=== PATIENT | female | born 2000 | race African-American/Black ===

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

== ENCOUNTER 2019-01-10 06:56 | Emergency (ER) | payer SELFPAY ==
[~2019-01-10] VITALS: Ht 172.7 cm; Wt 58.5 kg
[~2019-01-10 06:56] MED LIST: METR500T PO; ONDA4TAB10 SL; PHEN-318 PO; SULF1TAB24 PO; VALA1000 PO
[2019-01-10] MEDS ORDERED: IV NORMAL SALINE 1000ML BAG 1,000 ML IV SCH (07:21)
[2019-01-10] MEDS ORDERED: FAMOTIDINE 20 MG/2 ML VIAL IVP ONE (07:30)
[2019-01-10] MEDS ORDERED: ONDANSETRON PF 4 MG/2 ML VIAL. IV ONE (07:30)
[2019-01-10 07:40] LABS: BASO % 1 % (0-3); EOS # 0.2 x10^3/uL (0.0-0.7); EOS % 4 % (0-3); HEMATOCRIT 41.3 % (36.0-47.0); HEMOGLOBIN 13.9 g/dL (12.0-15.5); LYMPH # 1.7 x10^3/uL (1.0-4.8); LYMPH % 42 % (24-48); MEAN CORPUSCULAR HEMOGLOBIN 28 pg (25-35); MEAN CORPUSCULAR HGB CONC 34 g/dL (31-37); MEAN CORPUSCULAR VOLUME 83 fL (79-100); MONO # 0.4 x10^3/uL (0.0-1.1); MONO % 9 % (0-9); NEUT # 1.8 x10^3uL (1.8-7.7); NEUT % 44 % (31-73); PLATELET COUNT 245 x10^3/uL (140-400); RED BLOOD COUNT 4.96 x10^6/uL (3.50-5.40); RED CELL DISTRIBUTION WIDTH 12.8 % (11.5-14.5); WHITE BLOOD COUNT 4.1 x10^3/uL (4.0-11.0)
[2019-01-10 07:41] LABS: BILIRUBIN,URINE NEGATIVE (NEG); CLARITY,URINE CLEAR; COLOR,URINE YELLOW; NITRITE,URINE NEGATIVE (NEG); PH,URINE 5.5; PROTEIN,URINE NEGATIVE (NEG-TRACE); UROBILINOGEN,URINE 0.2 mg/dL (0.2 mg/dL)
[2019-01-10 07:45] LABS: CALCIUM 9.3 mg/dL (8.5-10.1); CREATININE 0.8 mg/dL (0.6-1.0); GFR 111.8; POTASSIUM 3.4 mmol/L (3.5-5.1)
[2019-01-10 07:51] LABS: ALBUMIN 4.3 g/dL (3.4-5.0); ALBUMIN/GLOBULIN RATIO 1.2 (1.0-1.7)
[2019-01-10 07:54] LABS: SQUAMOUS EPITHELIAL CELL,UR MOD /LPF
[2019-01-10 07:55] LABS: BACTERIA,URINE 0 /HPF (0-FEW); RBC,URINE 0 /HPF (0-2); WBC,URINE OCC /HPF (0-4)
[2019-01-10] MEDS ORDERED: KETOROLAC 30 MG/ML VIAL. IV ONE (08:00)
--- NOTE | 2019-01-10 08:05 | PHYS DOC ---
Past Medical History Past Medical History: No Pertinent History Past Surgical History: No Surgical History Alcohol Use: None Drug Use: None Adult General Chief Complaint Chief Complaint: ABDOMINAL PAIN [facility] HPI Patient is a 18 year old female who presents with complaining of abdominal pain. Patient states she woke up at 6 AM because of nausea and upper abdominal pain as a constant sharp pain without radiation and rated her pain 9/10. Patient denies fever and chills, urinary symptoms, vomiting, , vaginal bleeding or discharge, diarrhea and constipation. Patient states he had a normal bowel movement yesterday. Patient states she had episodes of the same pain frequently and ate pizza last night. Review of Systems Review of Systems Constitutional: Denies fever or chills [] Eyes: Denies change in visual acuity, redness, or eye pain [] HENT: Denies nasal congestion or sore throat [] Respiratory: Denies cough or shortness of breath [] Cardiovascular: No additional information not addressed in HPI [] GI: Reports abdominal pain, nausea, denies vomiting, bloody stools or diarrhea [] : Denies dysuria or hematuria [] Musculoskeletal: Denies back pain or joint pain [] Integument: Denies rash or skin lesions [] Neurologic: Denies headache, focal weakness or sensory changes [] Endocrine: Denies polyuria or polydipsia [] All other systems were reviewed and found to be within normal limits, except as documented in this note. Current Medications Current Medications Current Medications Medications (Trade) Dose Ordered Sig/Angelina Start Time Stop Time Status Last Admin Dose Admin Famotidine (Pepcid Vial) 20 mg 1X ONCE 01/10/19 07:30 01/10/19 07:31 DC 01/10/19 07:46 20 MG Ketorolac Tromethamine (Toradol 30mg Vial) 30 mg 1X ONCE 01/10/19 08:00 01/10/19 08:01 DC 01/10/19 08:00 30 MG Ondansetron HCl (Zofran) 4 mg 1X ONCE 01/10/19 07:30 01/10/19 07:31 DC 01/10/19 07:46 4 MG Sodium Chloride 1,000 ml @ 1,000 mls/hr Q1H 01/10/19 07:21 01/10/19 08:20 DC 01/10/19 07:46 1,000 MLS/HR Allergies Allergies Allergies Coded Allergies Type Severity Reaction Last Updated Verified No Known Drug Allergies 12/29/16 No Physical Exam Physical Exam Constitutional: Well developed, well nourished, mild distress, non-toxic appearance. [] HENT: Normocephalic, atraumatic, oral mucosa moist. Eyes: PERRLA, EOMI, conjunctiva normal, no discharge. [] Neck: Normal range of motion, no tenderness, supple, no stridor. [] Cardiovascular:Heart rate regular rhythm, no murmur [] Lungs & Thorax: Bilateral breath sounds clear to auscultation [] Abdomen: Bowel sounds normal, soft, no tenderness, mild guarding in epigastric area, no masses, no pulsatile masses. [] Skin: Warm, dry, no erythema, no rash. [] Back: No tenderness, no CVA tenderness. [] Extremities: No tenderness, no cyanosis, no clubbing, ROM intact, no edema. [] Neurologic: Alert and oriented X 3, normal motor function, normal sensory function, no focal deficits noted. [] Psychologic: Affect normal, judgement normal, mood normal. [] Current Patient Data Vital Signs Vital Signs Date Time Temp Pulse Resp B/P (MAP) Pulse Ox O2 Delivery O2 Flow Rate FiO2 01/10/19 08:16 69 106/64 (78) 100 01/10/19 07:06 98.1 16 Room Air 98.1 Lab Values Laboratory Tests Test 01/10/19 06:58 01/10/19 07:05 01/10/19 07:11 Urine Collection Type Unknown Urine Color Yellow Urine Clarity Clear Urine pH 5.5 Urine Specific [place] 1.025 Urine Protein Negative mg/dL (NEG-TRACE) Urine Glucose (UA) Negative mg/dL (NEG) Urine Ketones (Stick) Negative mg/dL (NEG) Urine Blood Small (NEG) Urine Nitrite Negative (NEG) Urine Bilirubin Negative (NEG) Urine Urobilinogen Dipstick 0.2 mg/dL (0.2 mg/dL) Urine Leukocyte Esterase Negative (NEG) Urine RBC 0 /HPF (0-2) Urine WBC Occ /HPF (0-4) Urine Squamous Epithelial Cells Mod /LPF Urine Bacteria 0 /HPF (0-FEW) Urine Mucus Marked /LPF POC Urine HCG, Qualitative Hcg negative (Negative) White Blood Count 4.1 x10^3/uL (4.0-11.0) Red Blood Count 4.96 x10^6/uL (3.50-5.40) Hemoglobin 13.9 g/dL (12.0-15.5) Hematocrit 41.3 % (36.0-47.0) Mean Corpuscular Volume 83 fL (79-100) Mean Corpuscular Hemoglobin 28 pg (25-35) Mean Corpuscular Hemoglobin Concent 34 g/dL (31-37) Red Cell Distribution Width 12.8 % (11.5-14.5) Platelet Count 245 x10^3/uL (140-400) Neutrophils (%) (Auto) 44 % (31-73) Lymphocytes (%) (Auto) 42 % (24-48) Monocytes (%) (Auto) 9 % (0-9) Eosinophils (%) (Auto) 4 % (0-3) H Basophils (%) (Auto) 1 % (0-3) Neutrophils # (Auto) 1.8 x10^3uL (1.8-7.7) Lymphocytes # (Auto) 1.7 x10^3/uL (1.0-4.8) Monocytes # (Auto) 0.4 x10^3/uL (0.0-1.1) Eosinophils # (Auto) 0.2 x10^3/uL (0.0-0.7) Basophils # (Auto) 0.0 x10^3/uL (0.0-0.2) Sodium Level 140 mmol/L (136-145) Potassium Level 3.4 mmol/L (3.5-5.1) L Chloride Level 103 mmol/L (98-107) Carbon Dioxide Level 28 mmol/L (21-32) Anion Gap 9 (6-14) Blood Urea Nitrogen 10 mg/dL (7-20) Creatinine 0.8 mg/dL (0.6-1.0) Estimated GFR (Cockcroft-Gault) 111.8 BUN/Creatinine Ratio 13 (6-20) Glucose Level 98 mg/dL (70-99) Calcium Level 9.3 mg/dL (8.5-10.1) Total Bilirubin 2.0 mg/dL (0.2-1.0) H Aspartate Amino Transferase (AST) 20 U/L (15-37) Alanine Aminotransferase (ALT) 14 U/L (14-59) Alkaline Phosphatase 63 U/L (46-116) Total Protein 8.0 g/dL (6.4-8.2) Albumin 4.3 g/dL (3.4-5.0) Albumin/Globulin Ratio 1.2 (1.0-1.7) Lipase 151 U/L (73-393) Laboratory Tests 01/10/19 07:11 Laboratory Tests 01/10/19 07:11 EKG EKG [] Radiology/Procedures Radiology/Procedures [][facility] [address] [place] [address] IMAGING REPORT Signed PATIENT: TUNG FLORIAN ACCOUNT: [id number] : 2000 LOCATION: ER AGE: 18 SEX: F EXAM STATUS: REG ER ORD. PHYSICIAN: JAHAIRA LEBLANC MD REASON: upper abdominal pain PROCEDURE: ABDOMEN LTD Examination: ABDOMEN LTD History: UPPER ABD PAIN Comparison/Correlation: None Findings: Limited right upper quadrant ultrasound exam was performed. Gallbladder is normal with no cholelithiasis or inflammatory findings. Hepatic echotexture is normal. Inferior vena cava and abdominal aorta are unremarkable. Right kidney measures 11.7 cm x 5.1 cm x 4.1 cm. No right hydronephrosis. Right renal contour is normal. Proximal pancreas is normal. Distal pancreas is obscured by bowel gas. No right upper quadrant ascites. Portal venous flow is unremarkable. Impression: Normal right upper quadrant ultrasound exam. Electronically signed by: Yovanny Wade MD (01/10/2019 8:17 AM) [facility] DICTATED and SIGNED BY: YOVANNY WADE MD DATE: 01/10/19 0817 Course & Med Decision Making Course & Med Decision Making Pertinent Labs and Imaging studies reviewed. (See chart for details) Evaluation of patient in ER showed 18-year-old female patient with complaining of upper abdominal pain and nausea since this morning with episodes of the same problem previously. Patient had unremarkable physical exam and labs except for potassium of 3.4. Gallbladder ultrasound was unremarkable. Patient with IV fluid, Zofran, Pepcid and Toradol. Plan discharge patient home to diagnose of dyspepsia. I've spoken with the patient and/or caregivers. I've explained the patient's condition, diagnosis and treatment plan based on information available to me at this time. I've answered the patient's and/or caregivers questions and addressed any concerns. The patient and/or caregivers have a good understanding the patient's diagnosis, condition and treatment plan as can be expected at this point. Vital signs have been stabilized. The patient's condition is stable for discharge from the emergency department. The patient will pursue further outpatient evaluation with her primary care provider or other designated consulting physician as outlined in the discharge instructions. Patient and/or caregivers are agreeable to this plan of care and follow-up instructions have been explained in detail. The patient and/or caregivers have received these instructions in written format and expressed understanding of these discharge instructions. The patient and her caregivers are aware that if any significant change in condition or worsening of symptoms should prompt him to immediately return to this of the closest emergency department. If an emergent department is not readily available I would encourage him to call 911. Dragon Disclaimer Dragon Disclaimer This electronic medical record was generated, in whole or in part, using a voice recognition dictation system. Departure Departure Impression: Primary Impression: Dyspepsia Additional Impressions: Nausea Epigastric pain Disposition: HOME, SELF-CARE (at 0 828) Condition: IMPROVED Referrals: NO PCP (PCP) Patient Instructions: Diet for Gastroesophageal Reflux Disease, Adult Additional Instructions: Drink plenty of liquids Follow-up with your primary care physician in 3-5 days Return to ER if not getting better Avoid of eating greasy and spicy food Scripts Ranitidine Hcl (ZANTAC) 150 Mg Tablet 1 TAB PO BID for dyspepsia, #30 TAB 0 Refills Prov: JAHAIRA LEBLANC MD 01/10/19 Problem Qualifiers JAHAIRA LEBLANC MD Jan 10, 2019 08:05
--- NOTE | 2019-01-10 08:19 | RAD ---
Examination: ABDOMEN LTD History: UPPER ABD PAIN Comparison/Correlation: None Findings: Limited right upper quadrant ultrasound exam was performed. Gallbladder is normal with no cholelithiasis or inflammatory findings. Hepatic echotexture is normal. Inferior vena cava and abdominal aorta are unremarkable. Right kidney measures 11.7 cm x 5.1 cm x 4.1 cm. No right hydronephrosis. Right renal contour is normal. Proximal pancreas is normal. Distal pancreas is obscured by bowel gas. No right upper quadrant ascites. Portal venous flow is unremarkable. Impression: Normal right upper quadrant ultrasound exam. Electronically signed by: Yovanny King MD (01/10/2019 8:17 AM) [facility]
[2019-01-10] MEDS ORDERED: RANI-376 PO (08:30)
[2019-01-10 08:35] VITALS: BP 112/65
== END 2019-01-10 08:43 | disposition home or self-care (01) ==
LOC: ER 06:56
DX: R10.13 Epigastric pain (principal); R11.0 Nausea
CPT/HCPCS: 36415; 76705; 80053; 81001; 81025; 83690; 85025; 96374; 96375; 99285; J1885; J2405; J3490; J7030

== ENCOUNTER 2019-03-14 14:01 | Emergency (ER) | payer SELFPAY ==
[~2019-03-14] VITALS: Ht 172.7 cm; Wt 56.2 kg
[~2019-03-14 14:01] MED LIST changes: +RANI-376 PO
[2019-03-14] MEDS ORDERED: IV NORMAL SALINE 1000ML BAG 1,000 ML IV ONE (15:30)
[2019-03-14] MEDS ORDERED: ONDANSETRON PF 4 MG/2 ML VIAL. IV ONE (15:30)
--- NOTE | 2019-03-14 15:31 | PHYS DOC ---
Past Medical History Past Medical History: No Pertinent History Past Surgical History: No Surgical History Alcohol Use: None Drug Use: None Adult General Chief Complaint Chief Complaint: ABDOMINAL PAIN HPI HPI Patient is a 18 year old female presents for eval of nausea since Tuesday. She reports woke up last night and had an episode of emesis. Denies diarrhea. She reports abdominal pain associated c nausea only. No point tenderness to abd. She states no fevers and denies , has IUD and no menstrual cycles d/t IUD. She does relate some pain intermittently in her left side, not in her back. Review of Systems Review of Systems Constitutional: Denies fever or chills [] Eyes: Denies change in visual acuity, redness, or eye pain [] HENT: Denies nasal congestion or sore throat [] Respiratory: Denies cough or shortness of breath [] Cardiovascular: No additional information not addressed in HPI [] GI: Denies abdominal pain, nausea, vomiting, bloody stools or diarrhea [] : Denies dysuria or hematuria [] Musculoskeletal: Denies back pain or joint pain [] Integument: Denies rash or skin lesions [] Neurologic: Denies headache, focal weakness or sensory changes [] Endocrine: Denies polyuria or polydipsia [] All other systems were reviewed and found to be within normal limits, except as documented in this note. Current Medications Current Medications Current Medications Medications (Trade) Dose Ordered Sig/Angelina Start Time Stop Time Status Last Admin Dose Admin Ondansetron HCl (Zofran) 4 mg 1X ONCE 03/14/19 15:30 03/14/19 15:32 DC 03/14/19 16:07 4 MG Sodium Chloride 1,000 ml @ 1,000 mls/hr 1X ONCE 03/14/19 15:30 03/14/19 16:29 DC 03/14/19 16:05 1,000 MLS/HR Allergies Allergies Allergies Coded Allergies Type Severity Reaction Last Updated Verified No Known Drug Allergies 12/29/16 No Physical Exam Physical Exam Constitutional: Well developed, well nourished, no acute distress, non-toxic appearance. [] Neck: Normal range of motion, no tenderness, supple, no stridor. [] Cardiovascular:Heart rate regular rhythm, no murmur [] Lungs & Thorax: Bilateral breath sounds clear to auscultation [] Abdomen: Bowel sounds normal, soft, no tenderness, no masses, no pulsatile masses. [] Skin: Warm, dry, no erythema, no rash. [] Back: No tenderness, no CVA tenderness. [] Neurologic: Alert and oriented X 3, normal motor function, normal sensory function, no focal deficits noted. [] Psychologic: Affect normal, judgement normal, mood normal. [] Current Patient Data Vital Signs Vital Signs Date Time Temp Pulse Resp B/P (MAP) Pulse Ox O2 Delivery O2 Flow Rate FiO2 03/14/19 17:44 77 16 116/57 (76) 100 Room Air 03/14/19 15:30 98.3 98.3 Lab Values Laboratory Tests Test 03/14/19 15:25 03/14/19 15:28 03/14/19 16:21 Urine Collection Type Unknown Urine Color Yellow Urine Clarity Clear Urine pH 6.0 Urine Specific [place] 1.020 Urine Protein Negative mg/dL (NEG-TRACE) Urine Glucose (UA) Negative mg/dL (NEG) Urine Ketones (Stick) Negative mg/dL (NEG) Urine Blood Negative (NEG) Urine Nitrite Negative (NEG) Urine Bilirubin Negative (NEG) Urine Urobilinogen Dipstick 1.0 mg/dL (0.2 mg/dL) Urine Leukocyte Esterase Negative (NEG) Urine RBC 0 /HPF (0-2) Urine WBC Rare /HPF (0-4) Urine Squamous Epithelial Cells Many /LPF Urine Bacteria Few /HPF (0-FEW) Urine Mucus Slight /LPF Urine Test Negative (NEG) POC Urine HCG, Qualitative Hcg negative (Negative) White Blood Count 4.0 x10^3/uL (4.0-11.0) Red Blood Count 4.82 x10^6/uL (3.50-5.40) Hemoglobin 13.7 g/dL (12.0-15.5) Hematocrit 40.3 % (36.0-47.0) Mean Corpuscular Volume 84 fL (79-100) Mean Corpuscular Hemoglobin 28 pg (25-35) Mean Corpuscular Hemoglobin Concent 34 g/dL (31-37) Red Cell Distribution Width 13.1 % (11.5-14.5) Platelet Count 228 x10^3/uL (140-400) Neutrophils (%) (Auto) 59 % (31-73) Lymphocytes (%) (Auto) 31 % (24-48) Monocytes (%) (Auto) 8 % (0-9) Eosinophils (%) (Auto) 1 % (0-3) Basophils (%) (Auto) 1 % (0-3) Neutrophils # (Auto) 2.4 x10^3uL (1.8-7.7) Lymphocytes # (Auto) 1.2 x10^3/uL (1.0-4.8) Monocytes # (Auto) 0.3 x10^3/uL (0.0-1.1) Eosinophils # (Auto) 0.0 x10^3/uL (0.0-0.7) Basophils # (Auto) 0.0 x10^3/uL (0.0-0.2) Sodium Level 140 mmol/L (136-145) Potassium Level 3.3 mmol/L (3.5-5.1) L Chloride Level 103 mmol/L (98-107) Carbon Dioxide Level 29 mmol/L (21-32) Anion Gap 8 (6-14) Blood Urea Nitrogen 8 mg/dL (7-20) Creatinine 0.7 mg/dL (0.6-1.0) Estimated GFR (Cockcroft-Gault) 130.4 BUN/Creatinine Ratio 11 (6-20) Glucose Level 83 mg/dL (70-99) Calcium Level 9.3 mg/dL (8.5-10.1) Total Bilirubin 1.4 mg/dL (0.2-1.0) H Aspartate Amino Transferase (AST) 19 U/L (15-37) Alanine Aminotransferase (ALT) 20 U/L (14-59) Alkaline Phosphatase 61 U/L (46-116) Total Protein 7.9 g/dL (6.4-8.2) Albumin 4.3 g/dL (3.4-5.0) Albumin/Globulin Ratio 1.2 (1.0-1.7) Lipase 83 U/L (73-393) Laboratory Tests 03/14/19 16:21 Laboratory Tests 03/14/19 16:21 EKG EKG [] Radiology/Procedures Radiology/Procedures [] Course & Med Decision Making Course & Med Decision Making Pertinent Labs and Imaging studies reviewed. (See chart for details) [pt feeling better, no nausea, keith po fluids. vss, no fever, stable and non- toxic. f/u c pcp, rx zofran] Leonel Disclaimer Leonel Disclaimer This electronic medical record was generated, in whole or in part, using a voice recognition dictation system. Departure Departure Impression: Primary Impression: Vomiting Disposition: 01 HOME, SELF-CARE Condition: STABLE Referrals: NO PCP (PCP) Patient Instructions: Nausea and Vomiting Scripts Ondansetron Hcl (ZOFRAN) 4 Mg Tablet 1 TAB PO Q6HRS, #20 TAB Prov: MAGGIE HARP APRN 03/14/19 Problem Qualifiers Primary Impression: Vomiting Vomiting type: unspecified Vomiting Intractability: non-intractable Nausea presence: with nausea Qualified Codes: R11.2 - Nausea with vomiting, unspecified MAGGIE HARP APRN Mar 14, 2019 15:31
[2019-03-14 15:38] LABS: BILIRUBIN,URINE NEGATIVE (NEG); CLARITY,URINE CLEAR; COLOR,URINE YELLOW; NITRITE,URINE NEGATIVE (NEG); PROTEIN,URINE NEGATIVE (NEG-TRACE)
[2019-03-14 15:43] LABS: BACTERIA,URINE FEW /HPF (0-FEW); RBC,URINE 0 /HPF (0-2); SQUAMOUS EPITHELIAL CELL,UR MANY /LPF; WBC,URINE RARE /HPF (0-4)
[2019-03-14 16:17] LABS: U PREG PATIENT NEGATIVE (NEG)
[2019-03-14 16:30] LABS: BASO % 1 % (0-3); EOS % 1 % (0-3); HEMATOCRIT 40.3 % (36.0-47.0); HEMOGLOBIN 13.7 g/dL (12.0-15.5); LYMPH # 1.2 x10^3/uL (1.0-4.8); LYMPH % 31 % (24-48); MEAN CORPUSCULAR HEMOGLOBIN 28 pg (25-35); MEAN CORPUSCULAR HGB CONC 34 g/dL (31-37); MEAN CORPUSCULAR VOLUME 84 fL (79-100); MONO # 0.3 x10^3/uL (0.0-1.1); MONO % 8 % (0-9); NEUT # 2.4 x10^3uL (1.8-7.7); NEUT % 59 % (31-73); PLATELET COUNT 228 x10^3/uL (140-400); RED BLOOD COUNT 4.82 x10^6/uL (3.50-5.40); RED CELL DISTRIBUTION WIDTH 13.1 % (11.5-14.5)
[2019-03-14 17:04] LABS: CALCIUM 9.3 mg/dL (8.5-10.1); CREATININE 0.7 mg/dL (0.6-1.0); GFR 130.4; POTASSIUM 3.3 mmol/L (3.5-5.1)
[2019-03-14 17:10] LABS: ALBUMIN 4.3 g/dL (3.4-5.0); ALBUMIN/GLOBULIN RATIO 1.2 (1.0-1.7); TOTAL BILIRUBIN 1.4 mg/dL (0.2-1.0); TOTAL PROTEIN 7.9 g/dL (6.4-8.2)
[2019-03-14] MEDS ORDERED: ONDA4TAB7 PO (17:33)
[2019-03-14 17:44] VITALS: BP 116/57
== END 2019-03-14 18:02 | disposition home or self-care (01) ==
LOC: ER 14:01
DX: R11.2 Nausea with vomiting, unspecified (principal); R10.9 Unspecified abdominal pain
CPT/HCPCS: 36415; 80053; 81001; 81025; 83690; 85025; 96361; 96374; 99284; J2405; J7030

== ENCOUNTER 2020-10-05 07:37 | Observation (INO) | payer OTHER, MEDICAID ==
[~2020-10-05] VITALS: Ht 147.3 cm; Wt 62.1 kg
[~2020-10-05 07:37] MED LIST changes: +ONDA4TAB7 PO; -VALA1000 PO; +VALA10008 PO
[2020-10-05 08:15] VITALS: BP 90/52
[2020-10-05] MEDS ORDERED: IV RINGERS,LACTATED 1000ML 1,000 ML IV SCH (08:15)
[2020-10-05 08:31] LABS: BILIRUBIN,URINE NEGATIVE (NEG); CLARITY,URINE CLEAR; COLOR,URINE YELLOW; NITRITE,URINE NEGATIVE (NEG); PH,URINE 6.5 (<5.0-8.0); PROTEIN,URINE NEGATIVE (NEG-TRACE)
[2020-10-05 08:33] LABS: BARBITURATES NEG (NEG); BENZODIAZEPINES NEG (NEG); CANNABINOIDS POS (NEG); COCAINE NEG (NEG); METHADONE NEG (NEG); OPIATES NEG (NEG); PHENCYCLIDINE NEG (NEG)
[2020-10-05 08:35] LABS: AMPHETAMINE/METHAMPHETAMINE NEG (NEG)
[2020-10-05 08:43] LABS: BACTERIA,URINE FEW /HPF (0-FEW)
== END 2020-10-05 10:52 | disposition home or self-care (01) ==
LOC: 3 SO LND 07:37
PROVIDERS: ADMIT Obstetrics & Gynecology; ATTEND Obstetrics & Gynecology
DX: O26.893 Other specified pregnancy related conditions, third trimester (principal); O9A.213 Injury, poisoning and certain other consequences of external causes complicating pregnancy, third trimester; R10.30 Lower abdominal pain, unspecified; Z3A.38 38 weeks gestation of pregnancy; Z79.899 Other long term (current) drug therapy; Y04.0XXA Assault by unarmed brawl or fight, initial encounter; Y93.89 Activity, other specified; Y92.89 Other specified places as the place of occurrence of the external cause; Y99.8 Other external cause status
CPT/HCPCS: 59025; 80307; 81001; 87086; G0378; G0379

== ENCOUNTER 2021-07-15 23:13 | Emergency (ER) | payer MEDICAID, OTHER ==
[~2021-07-15] VITALS: Ht 172.7 cm; Wt 50.0 kg
[2021-07-16 02:31] LABS: BILIRUBIN,URINE NEGATIVE (NEG); CLARITY,URINE CLEAR; COLOR,URINE YELLOW; NITRITE,URINE NEGATIVE (NEG); PROTEIN,URINE NEGATIVE (NEG-TRACE)
[2021-07-16 02:40] LABS: BACTERIA,URINE FEW /HPF (0-FEW); RBC,URINE 0 /HPF (0-2); WBC,URINE OCC /HPF (0-4)
[2021-07-16 02:58] LABS: BASO % 1 % (0-3); EOS # 0.1 x10^3/uL (0.0-0.7); EOS % 2 % (0-3); HEMATOCRIT 33.5 % (36.0-47.0); LYMPH # 1.5 x10^3/uL (1.0-4.8); LYMPH % 21 % (24-48); MEAN CORPUSCULAR HEMOGLOBIN 26 pg (25-35); MEAN CORPUSCULAR HGB CONC 33 g/dL (31-37); MEAN CORPUSCULAR VOLUME 78 fL (79-100); MONO # 0.7 x10^3/uL (0.0-1.1); MONO % 10 % (0-9); NEUT # 4.5 x10^3/uL (1.8-7.7); NEUT % 66 % (31-73); PLATELET COUNT 255 x10^3/uL (140-400); RED BLOOD COUNT 4.28 x10^6/uL (3.50-5.40); RED CELL DISTRIBUTION WIDTH 17.3 % (11.5-14.5); WHITE BLOOD COUNT 6.8 x10^3/uL (4.0-11.0)
[2021-07-16 03:06] LABS: CALCIUM 8.6 mg/dL (8.5-10.1); CREATININE 0.7 mg/dL (0.6-1.0); GFR 126.6; POTASSIUM 3.6 mmol/L (3.5-5.1)
[2021-07-16 03:12] LABS: ALBUMIN 3.4 g/dL (3.4-5.0); ALBUMIN/GLOBULIN RATIO 0.9 (1.0-1.7); TOTAL BILIRUBIN 0.5 mg/dL (0.2-1.0); TOTAL PROTEIN 7.3 g/dL (6.4-8.2)
[2021-07-16] MEDS ORDERED: LIDO:MAALOX 1:1 20 ML SINGLE DOSE. PO PRN (03:45)
--- NOTE | 2021-07-16 03:51 | PHYS DOC ---
Past Medical History Past Medical History: No Pertinent History Past Surgical History: No Surgical History Smoking Status: Never Smoker Alcohol Use: Occasionally Drug Use: Marijuana General Adult EDM: Chief Complaint: ABDOMINAL PAIN HPI: HPI: Patient is a 21 year old female without pertinent past medical history who presents with 2 days of epigastric discomfort. Symptoms radiates towards the chest towards the back. Described as sharp. No associated nausea/vomiting, diarrhea, constipation, bl ack/tarry stools. No vaginal discharge, or lower abdominal symptoms. No dysuria, urgency, frequency, or flank pain She is currently on her period. She is sexually active, does not use any form of contraception. Review of Systems: Review of Systems: Constitutional: Denies fever or chills. [] Eyes: Denies change in visual acuity. [] HENT: Denies nasal congestion or sore throat. [] Respiratory: Denies cough or shortness of breath. [] Cardiovascular: Denies chest pain or edema. [] GI: Reports abdominal pain. Denies nausea, vomiting, bloody stools or diarrhea. [] : Denies dysuria. [] Musculoskeletal: Denies back pain or joint pain. [] Integument: Denies rash. [] Neurologic: Denies headache, focal weakness or sensory changes. [] Endocrine: Denies polyuria or polydipsia. [] Lymphatic: Denies swollen glands. [] Psychiatric: Denies depression or anxiety. [] Heart Score: C/O Chest Pain: No Current Medications: Current Medications Medications (Trade) Dose Ordered Sig/Angelina Start Time Stop Time Status Last Admin Dose Admin Multi-Ingredient Mouthwash/Gargle (Gi Cocktail) 20 ml PRN QID PRN 07/16/21 03:45 Allergies: Allergies: Allergies Coded Allergies Type Severity Reaction Last Updated Verified No Known Drug Allergies 12/29/16 No Physical Exam: PE: Constitutional: Well developed, well nourished, no acute distress, non-toxic appearance. [] HENT: Normocephalic, atraumatic, bilateral external ears normal, oropharynx moist, no oral exudates, nose normal. [] Eyes: PERRLA, EOMI, conjunctiva normal, no discharge. [] Neck: Normal range of motion, no tenderness, supple, no stridor. [] Cardiovascular:Heart rate regular rhythm, no murmur [] Lungs & Thorax: Bilateral breath sounds clear to auscultation [] Abdomen:epigastric and LUQ tendernsess to palpation Skin: Warm, dry, no erythema, no rash. [] Back: No tenderness, no CVA tenderness. [] Extremities: No tenderness, no cyanosis, no clubbing, ROM intact, no edema. [] Neurologic: Alert and oriented X 3, normal motor function, normal sensory function, no focal deficits noted. [] Psychologic: Affect normal, judgement normal, mood normal. [] Current Patient Data: Labs: Laboratory Tests Test 07/16/21 01:40 07/16/21 01:59 07/16/21 02:40 Urine Collection Type Unknown Urine Color Yellow Urine Clarity Clear Urine pH 7.0 (<5.0-8.0) Urine Specific [place] 1.025 (1.000-1.030) Urine Protein Negative mg/dL (NEG-TRACE) Urine Glucose (UA) Negative mg/dL (NEG) Urine Ketones (Stick) Negative mg/dL (NEG) Urine Blood Negative (NEG) Urine Nitrite Negative (NEG) Urine Bilirubin Negative (NEG) Urine Urobilinogen Dipstick 1.0 mg/dL (0.2 mg/dL) Urine Leukocyte Esterase Negative (NEG) Urine RBC 0 /HPF (0-2) Urine WBC Occ /HPF (0-4) Urine Squamous Epithelial Cells Few /LPF Urine Bacteria Few /HPF (0-FEW) Urine Mucus Slight /LPF POC Urine HCG, Qualitative Hcg negative (Negative) White Blood Count 6.8 x10^3/uL (4.0-11.0) Red Blood Count 4.28 x10^6/uL (3.50-5.40) Hemoglobin 11.0 g/dL (12.0-15.5) L Hematocrit 33.5 % (36.0-47.0) L Mean Corpuscular Volume 78 fL (79-100) L Mean Corpuscular Hemoglobin 26 pg (25-35) Mean Corpuscular Hemoglobin Concent 33 g/dL (31-37) Red Cell Distribution Width 17.3 % (11.5-14.5) H Platelet Count 255 x10^3/uL (140-400) Neutrophils (%) (Auto) 66 % (31-73) Lymphocytes (%) (Auto) 21 % (24-48) L Monocytes (%) (Auto) 10 % (0-9) H Eosinophils (%) (Auto) 2 % (0-3) Basophils (%) (Auto) 1 % (0-3) Neutrophils # (Auto) 4.5 x10^3/uL (1.8-7.7) Lymphocytes # (Auto) 1.5 x10^3/uL (1.0-4.8) Monocytes # (Auto) 0.7 x10^3/uL (0.0-1.1) Eosinophils # (Auto) 0.1 x10^3/uL (0.0-0.7) Basophils # (Auto) 0.0 x10^3/uL (0.0-0.2) Sodium Level 142 mmol/L (136-145) Potassium Level 3.6 mmol/L (3.5-5.1) Chloride Level 104 mmol/L (98-107) Carbon Dioxide Level 30 mmol/L (21-32) Anion Gap 8 (6-14) Blood Urea Nitrogen 12 mg/dL (7-20) Creatinine 0.7 mg/dL (0.6-1.0) Estimated GFR (Cockcroft-Gault) 126.6 BUN/Creatinine Ratio 17 (6-20) Glucose Level 82 mg/dL (70-99) Calcium Level 8.6 mg/dL (8.5-10.1) Total Bilirubin 0.5 mg/dL (0.2-1.0) Aspartate Amino Transferase (AST) 12 U/L (15-37) L Alanine Aminotransferase (ALT) 15 U/L (14-59) Alkaline Phosphatase 76 U/L (46-116) Total Protein 7.3 g/dL (6.4-8.2) Albumin 3.4 g/dL (3.4-5.0) Albumin/Globulin Ratio 0.9 (1.0-1.7) L Lipase 121 U/L (73-393) Laboratory Tests 07/16/21 02:40 Laboratory Tests 07/16/21 02:40 Vital Signs: Vital Signs Date Time Temp Pulse Resp B/P (MAP) Pulse Ox O2 Delivery O2 Flow Rate FiO2 07/16/21 01:55 98.3 75 18 111/64 (80) 100 Room Air 98.3 EKG: EKG: [] Radiology/Procedures: Radiology/Procedures: [] Impression: [facility] [address] [place], [place] [id number] IMAGING REPORT Signed PATIENT: TUNG FLORIAN RACCOUNT: [id number] : 2000 LOCATION: ER AGE: 21 SEX: F EXAM STATUS: REG ER ORD. PHYSICIAN: IRENA RODRIGUEZ MD REASON: EPIGASTRIC PAIN;OMNI 300, 75ML PROCEDURE: CT ABD PELV W/ IV CONTRST ONLY Examination: CT of the abdomen pelvis with IV contrast HISTORY: History of epigastric pain COMPARISON: None available TECHNIQUE: Axial CT images of abdomen pelvis were performed with IV contrast. Coronal and sagittal reformats are performed Exposure: One or more of the following individualized dose reduction techniques were utilized for this examination: 1. Automated exposure control 2. Adjustm ent of the mA and/or kV according to patient size 3. Use of iterative reconstruction technique FINDINGS: The bibasilar lungs are clear. No evidence of free air identified in the abdomen. The liver, spleen, adrenals grossly appears unremarkable. The gallbladder is mildly distended. The stomach is mildly distended. There are multiple fluid distended and dilated small bowel loops and enhancement of the small bowel wall identified throughout. There could be a transition point identified in the right lower quadrant of the abdomen, best visualized on series 2 image 57. At the site of transition within the bowel loop there appears to be a small density which is difficult to characterize. Evaluation is very limited as there is lack of intra-abdominal fat and due to lack of oral contrast. Feces and gas noted in the colon. There is cystic structure identified in the right adnexal lesion measuring 2 cm could be a right ovarian cyst or loop of fluid distended bowel. Small amount of free fluid identified in the pelvis. The bilateral kidneys enhance symmetrically. No evidence of lytic bony destructive lesion. IMPRESSION: 1. Multiple fluid distended and dilated small bowel loops and enhancement of the small bowel wall identified throughout could be small bowel obstruction with enteritis.. There could be a transition point identified in the right lower quadrant of the abdomen,. At the site of transition within the bowel loop there appears to be a small density which is difficult to characterize. Evaluation is very limited as there is lack of intra-abdominal fat and due to lack of oral contrast. 2. 2 cm cystic structure identified in the right adnexal lesion could be a right ovarian cyst or loop of fluid distended bowel. Electronically signed by: Isaiah Gamino MD (07/16/2021 5:23 AM) [id number] DICTATED and SIGNED BY: ISAIAH GAMINO MD DATE: 07/16/21 [id number] 0 Course & Med Decision Making: Course & Med Decision Making Pertinent Labs and Imaging studies reviewed. (See chart for details) Patient is a 21-year-old female without pertinent past medical history who presents with 2 days of sharp epigastric pain. On arrival is afebrile, hemodynamically stable. Well-appearing, no acute distress. Does have epigastric and LUQ tenderness to palpation. Labs without leukocytosis, or LFT abnormalities. Lipase negative. UA w/ a few bacteria and wbc, but no urinary sx to suggest UTI. test negative. Seems most consistent with gastritis or potentially peptic ulcer disease although no evidence of bleeding. We will attempt to treat with GI cocktail, and reevaluate need for imaging. -- Pain worse than before, now 03/28. We'll obtain CT abdomen/pelvis. 0421 CT shows dilated small bowel that was read as potentially SBO or enteritis. Patient's presentation is not c/w SBO given no n/v, anorexia, distension, and only isolated epigastric pain, tenderness. There is question of a 2 cm R adnexal cystic structure, but this is unlikely to be related to her presentation given no pelvic discomfort. Vitals remain stable, patient is able to tolerate PO. She is requesting to be discharged. Return precautions discussed for vomiting, fever/chills, bloody/black stools, or increased pain. Patient expresses understanding about need to return should symptoms worsen. [id number] Leonel Disclaimer: Leonel Disclaimer: This electronic medical record was generated, in whole or in part, using a voice recognition dictation system. Departure Departure Impression: Primary Impression: Epigastric pain Disposition: LEFT AWOL/ELOPED Condition: STABLE Referrals: NO PCP (PCP) Since you do not have a PCP, please call the number for the [facility] at [phone]. Additional Instructions: Possible that you have some inflammation or potentially a small ulcer in your stomach. Please take the acid reducing medication omeprazole 40 mg daily. This will take 2 weeks to reach peak levels, so please take a minimum of 2 weeks prior to stopping the medication. You can consider using calcium carbonate/Tums if it helps with your symptoms. You can take Tylenol 1000 mg every 6 hours as needed for pain. If you are not having bowel movements regularly you can try miralax, an over the counter laxative. Take 1 cap daily. Please call the number attached to try to establish with a primary care doctor. Please return to the ED if you develop vomiting, fever/chills, bloody/black stools, or increased pain. IRENA RODRIGUEZ MD Jul 16, 2021 03:51
[2021-07-16 04:21] VITALS: BP 121/95
[2021-07-16] MEDS ORDERED: CONTRAST GIVEN. MC PRN (04:30)
[2021-07-16] MEDS ORDERED: IOHEXOL 300 MG/ML 100ML VIAL. IV ONE (04:30)
--- NOTE | 2021-07-16 05:26 | RAD ---
Examination: CT of the abdomen pelvis with IV contrast HISTORY: History of epigastric pain COMPARISON: None available TECHNIQUE: Axial CT images of abdomen pelvis were performed with IV contrast. Coronal and sagittal re formats are performed Exposure: One or more of the following individualized dose reduction techniques were utilized for thi s examination: 1. Automated exposure control 2. Adjustment of the mA and/or kV according to patient size 3. Use of iterative reconstruction technique FINDINGS: The bibasilar lungs are clear. No evidence of free air identified in the abdomen. The liver, spleen, adrenals grossly appears unremarkable. The gallbladder is mildly distended. The stomach is mildly dis tended. There are multiple fluid distended and dilated small bowel loops and enhancement of the small bowel wall identified throughout. There could be a transition point identified in the right lower qu adrant of the abdomen, best visualized on series 2 image 57. At the site of transition within the bow el loop there appears to be a small density which is difficult to characterize. Evaluation is very li mited as there is lack of intra-abdominal fat and due to lack of oral contrast. Feces and gas noted i n the colon. There is cystic structure identified in the right adnexal lesion measuring 2 cm could be a right ovarian cyst or loop of fluid distended bowel. Small amount of free fluid identified in the pelvis. The bilateral kidneys enhance symmetrically. No evidence of lytic bony destructive lesion. IMPRESSION: 1. Multiple fluid distended and dilated small bowel loops and enhancement of the small bowel wall id entified throughout could be small bowel obstruction with enteritis.. There could be a transition poi nt identified in the right lower quadrant of the abdomen,. At the site of transition within the bowel loop there appears to be a small density which is difficult to characterize. Evaluation is very limi olivia as there is lack of intra-abdominal fat and due to lack of oral contrast. 2. 2 cm cystic structure identified in the right adnexal lesion could be a right ovarian cyst or loo p of fluid distended bowel. Electronically signed by: Isaiah Gamino MD (07/16/2021 5:23 AM) [id number]
[2021-07-16] MEDS ORDERED: KETOROLAC 15 MG/ML VIAL. IVP ONE (05:45)
== END 2021-07-16 06:02 | disposition home or self-care (01) ==
LOC: ER 23:13
DX: R10.13 Epigastric pain (principal); R10.12 Left upper quadrant pain
CPT/HCPCS: 36415; 74177; 80053; 81001; 81025; 83690; 85025; 96374; 99285; J1885; Q9967

== ENCOUNTER 2021-07-21 11:55 | Emergency (ER) | payer OTHER ==
[~2021-07-21] VITALS: Ht 172.7 cm; Wt 47.7 kg
--- NOTE | 2021-07-21 12:05 | PHYS DOC ---
Past Medical History Past Medical History: No Pertinent History Past Surgical History: No Surgical History Smoking Status: Never Smoker Alcohol Use: Occasionally Drug Use: Marijuana General Adult EDM: Chief Complaint: ABDOMINAL PAIN HPI: HPI: Patient is a 21 year old female who presents with generalized abdominal pain, progressively worsening over the last week. She was seen here on 16 July for similar symptoms. Her CT abdomen pelvis showed findings of enteritis. She was discharged home. She reports that she felt better for a short time, then symptoms have progressively worsened. Her pain is nonlocalized, generalized in the mid and lower abdomen and pelvis area. She denies urinary symptoms. She denies vaginal discharge or bleeding. She denies back or flank pain. She reports some nausea and vomiting. Denies constipation or diarrhea. LMP within the last month. She denies previous abdominal surgeries. She has not followed up with a primary care physician since then. She initially did not reveal this, but she reports that about 6 weeks ago, she was living in [place], and she suffered an spontaneous miscarriage. Does not sound like she had any intervention, D&C or surgery for this. She was told to follow-up for a right adnexal mass, which she did not do. She has subsequently moved up here, and she does not have a physician here currently. Review of Systems: Review of Systems: Constitutional: Denies fever or chills. [] HENT: Denies nasal congestion or sore throat. [] Respiratory: Denies cough or shortness of breath. [] Cardiovascular: Denies chest pain or edema. [] GI: Generalized abdominal pain, nausea, vomiting. Denies constipation or diarrhea. Denies melena or hematochezia. : Denies urinary symptoms. Denies vaginal discharge or bleeding. Diffuse pelvic pain. Musculoskeletal: Denies back pain or joint pain. [] Integument: Denies rash. [] Neurologic: Denies headache, focal weakness or sensory changes. [] Endocrine: Denies polyuria or polydipsia. [] Lymphatic: Denies swollen glands. [] Psychiatric: Denies depression or anxiety. [] Heart Score: C/O Chest Pain: No Risk Factors: Risk Factors: DM, Current or recent (<one month) smoker, HTN, HLP, family history of CAD, obesity. Risk Scores: Score 0 - 3: 2.5% MACE over next 6 weeks - Discharge Home Score 4 - 6: 20.3% MACE over next 6 weeks - Admit for Clinical Observation Score 7 - 10: 72.7% MACE over next 6 weeks - Early Invasive Strategies Allergies: Allergies: Allergies Coded Allergies Type Severity Reaction Last Updated Verified No Known Drug Allergies 12/29/16 No Physical Exam: PE: Constitutional: Well developed, well nourished, no acute distress, non-toxic appearance. [] HENT: Normocephalic, atraumatic, mucous membranes are moist. Eyes: [place] are clear and anicteric. Neck: Trachea is midline Cardiovascular:Heart rate regular rhythm, +2 radial and dorsalis pedis pulses bilaterally Lungs & Thorax: Bilateral breath sounds clear to auscultation [] Abdomen: Abdomen soft, nondistended, no fluid wave or ascites, normal bowel sounds noted, diffusely tender to palpation, diffuse right lower quadrant left lower quadrant and suprapubic tenderness. No rebound tenderness. Mild voluntary guarding. No CVA tenderness. No flank abdominal ecchymoses. No palpable mass organomegaly. Skin: Warm, dry, no erythema, no rash. [] Back: No tenderness, no CVA tenderness. [] Extremities: No tenderness, no cyanosis, no clubbing, ROM intact, no edema. [] Neurologic: Alert and oriented X 3, normal motor function, normal sensory function, no focal deficits noted. [] Psychologic: Affect normal, judgement normal, mood normal. [] Radiology/Procedures: Radiology/Procedures: IMAGING REPORT Signed PATIENT: TUNG FLORIAN RACCOUNT: [id number] : 2000 LOCATION: ER AGE: 21 SEX: F EXAM STATUS: REG ER ORD. PHYSICIAN: VALERIANO MENJIVAR DO REASON: abdominal pain PROCEDURE: CT ABD PELV W/ IV CONTRST ONLY Exam: CT abdomen/pelvis with intravenous contrast Indication: Abdominal pain Comparison: CT abdomen pelvis 07/16/2021 Technique: Helical CT imaging performed of the abdomen and pelvis after the intravenous administration of 75 mL Omnipaque 300 contrast. Sagittal and coronal reformats were obtained. One or more of the following individualized dose reduction techniques were utilized for this examination: 1. Automated exposure control 2. Adjustment of the mA and/or kV according to patient size 3. Use of iterative reconstruction technique. Findings: Lower chest: The lung bases are clear. Heart is normal in size. Liver: Normal Gallbladder/Biliary Tree: Normal. Pancreas: Normal. Spleen: Normal normal. Adrenal Glands: Normal. Kidneys/Ureters/Bladder: Kidneys are normal in size and enhance symmetrically. No hydronephrosis. Ureters and bladder are unremarkable. Reproductive Organs: Uterus is retroverted. Tubular cystic structure in the right adnexa may be loops of fluid-filled small bowel or hydrosalpinx. The right adnexa had a similar appearance on 07/16/2020. Stomach, small bowel, and colon: The stomach is normal. There is no small bowel obstruction. The appendix is normal. There is a large volume of stool. Colon is otherwise unremarkable. Vasculature: Abdominal aorta is normal in caliber. Lymph Nodes: No lymphadenopathy. Peritoneum and retroperitoneum: Small volume of free fluid in the pelvis. Bones: No acute osseous abnormality. Impression: 1. Tubular fluid-filled structure in the right adnexa could be normal loops of small bowel or could be hydrosalpinx as the right adnexa has a similar appearance on 07/16/2021. Correlate with site of pain. Pelvic ultrasound could be obtained to further evaluate if clinically indicated. 2. Small volume free fluid in pelvis. Electronically signed by: Lo Ford MD (07/21/2021 2:06 PM) [id number] DICTATED and SIGNED BY: LO FORD MD DATE: 07/21/21 [id number] IMAGING REPORT Signed PATIENT: TUNG FLORIAN RACCOUNT: [id number] : 2000 LOCATION: ER AGE: 21 SEX: F EXAM STATUS: REG ER ORD. PHYSICIAN: VALERIANO MENJIVAR DO REASON: pelvic pain, R hydrosalpinx on CT PROCEDURE: PELVIS W/TV EXAMINATION: US PELVIS W/TV, 07/21/2021 2:43 PM CLINICAL INDICATION: Pelvic pain, possible hydrosalpinx on CT TECHNIQUE: Grayscale, color and spectral Doppler ultrasound images of the pelvis via transabdominal and transvaginal approach. COMPARISON: None. FINDINGS: The uterus measures 10.5 x 5.7 x 4.2 and is retroverted. The endometrial stripe measures 3 mm in thickness. No myometrial mass. The left ovary measures 3.5 x 2.4 x 2.5 cm. There is normal left ovarian blood flow. There is a 5.8 x 2.4 cm elongated tubular cystic structure in the right adnexa immediately adjacent to or arising from the right ovary. This is inseparable from the ovary, making measurements difficult. The ovary excluding the tubular structure measures about 2.7 x 2.1 cm. There is normal blood flow seen in the ov jason and blood flow along the james and a nodular septation of the tubular structure. Small amount of simple free fluid in the pelvis. IMPRESSION: 5.8 x 2.4 cm elongated tubular cystic structure in the right adnexa immediately adjacent to or arising from the right ovary. This is favored to be hydrosalpinx although an ovarian or paraovarian cyst with a solid nodular component is not excluded. Recommend follow-up ultrasound in 6-8 weeks to reevaluate. Electronically signed by: Lo Ford MD (07/21/2021 4:25 PM) [id number] DICTATED and SIGNED BY: LO FORD MD DATE: 07/21/21 [id number] 0 Course & Med Decision Making: Course & Med Decision Making IV fluids, IV Zofran, IV fentanyl, IV Toradol given. I have discussed the findings, differential diagnosis and plan of care with her. Currently, she has a nonsurgical abdominal exam. Hydrosalpinx is noted on ultrasound with adjacent right adnexal mass, possible cyst. Normal blood flow noted to ovaries, per radiographic report. Laboratory exams are unremarkable. I explained that she needs to follow-up with [facility]. She should also have a repeat ultrasound in the next 6 to 8 weeks to ensure resolution or improvement of said hydrosalpinx. She reports that about 6 weeks ago she had a spontaneous miscarriage, when she was living in [place]. She followed up with [facility] there at that time, and she was notified of a right adnexal mass. She did not follow-up there after, as she moved here. I recommend that she obtain these records and compare her ultrasound studies from her doctors office in [place] to those obtained today, and those that will be obtained in 6 to 8 weeks for ultrasound follow-up. There is no current indication for admission at this time. Strict return precautions are given. Dragon Disclaimer: Dragon Disclaimer: This electronic medical record was generated, in whole or in part, using a voice recognition dictation system. Departure Departure Impression: Primary Impression: Hydrosalpinx Additional Impression: Generalized abdominal pain Disposition: HOME / SELF CARE / HOMELESS Condition: STABLE Referrals: NO PCP (PCP) RASHEED RODRIGUEZ MD, DONALD G Jr MD WILSON, BRANDI D MD Patient Instructions: Abdominal Pain (Nonspecific), Ovarian Cyst Additional Instructions: Take the medications as directed/as needed. You do have fluid in your right tube, as well as a cyst type mass on your right ovary. This needs to be followed up to ensure that it resolves or does not get worse. Please try to obtain your records and ultrasound from [place] and bring it to your gynecology appointment here for comparison. You will need a repeat ultrasound in 6 to 8 weeks to watch the progress. Return to the ER immediately for uncontrolled vomiting, dehydration, fever 100.4 or higher, more severe pain or for any other concerns. Please also establish care with a primary care physician for follow- up. Scripts Ondansetron Hcl (ZOFRAN) 4 Mg Tablet 4 MG PO PRN TID PRN for VOMITING, #20 TAB 0 Refills nausea/vomiting Prov: TIARAVALERIANO Horner DO 07/21/21 Hydrocodone Bit/Acetaminophen (HYDROCODONE-APAP 5-325 ) 1 Tab Tablet 1 TAB PO PRN Q6HRS PRN for PAIN, #20 TAB 0 Refills Prov: VALERIANO MENJIVAR DO 07/21/21 VALERIANO MENJIVAR DO Jul 21, 2021 12:05
[2021-07-21] MEDS ORDERED: IV NORMAL SALINE 1000ML BAG 1,000 ML IV ONE (12:30)
[2021-07-21] MEDS ORDERED: ONDANSETRON PF 4 MG/2 ML VIAL. IVP ONE (12:30)
[2021-07-21] MEDS ORDERED: fentaNYL PF VIAL 100 MCG/2 ML VIAL IVP ONE (12:30)
[2021-07-21 12:32] LABS: BILIRUBIN,URINE NEGATIVE (NEG); CLARITY,URINE CLEAR; COLOR,URINE YELLOW; NITRITE,URINE NEGATIVE (NEG); PROTEIN,URINE NEGATIVE (NEG-TRACE); UROBILINOGEN,URINE 0.2 mg/dL (0.2 mg/dL)
[2021-07-21 12:33] LABS: BASO % 1 % (0-3); EOS # 0.1 x10^3/uL (0.0-0.7); EOS % 1 % (0-3); HEMATOCRIT 37.6 % (36.0-47.0); HEMOGLOBIN 12.2 g/dL (12.0-15.5); LYMPH % 13 % (24-48); MEAN CORPUSCULAR HEMOGLOBIN 25 pg (25-35); MEAN CORPUSCULAR HGB CONC 32 g/dL (31-37); MEAN CORPUSCULAR VOLUME 79 fL (79-100); MONO # 0.6 x10^3/uL (0.0-1.1); MONO % 7 % (0-9); NEUT # 6.2 x10^3/uL (1.8-7.7); NEUT % 78 % (31-73); PLATELET COUNT 333 x10^3/uL (140-400); RED BLOOD COUNT 4.79 x10^6/uL (3.50-5.40); RED CELL DISTRIBUTION WIDTH 17.3 % (11.5-14.5); WHITE BLOOD COUNT 7.9 x10^3/uL (4.0-11.0)
[2021-07-21 12:39] LABS: CALCIUM 8.6 mg/dL (8.5-10.1); CREATININE 0.7 mg/dL (0.6-1.0); GFR 126.6; POTASSIUM 3.6 mmol/L (3.5-5.1)
[2021-07-21 12:44] LABS: ALBUMIN 3.9 g/dL (3.4-5.0); ALBUMIN/GLOBULIN RATIO 0.9 (1.0-1.7); TOTAL BILIRUBIN 0.6 mg/dL (0.2-1.0); TOTAL PROTEIN 8.3 g/dL (6.4-8.2)
[2021-07-21 12:54] LABS: BACTERIA,URINE MODERATE /HPF (0-FEW)
[2021-07-21] MEDS ORDERED: IOHEXOL 300 MG/ML 100ML VIAL. IV ONE (13:45)
[2021-07-21] MEDS ORDERED: KETOROLAC 15 MG/ML VIAL. IVP ONE (13:45)
--- NOTE | 2021-07-21 14:08 | RAD ---
Exam: CT abdomen/pelvis with intravenous contrast Indication: Abdominal pain Comparison: CT abdomen pelvis 07/16/2021 Technique: Helical CT imaging performed of the abdomen and pelvis after the intravenous administratio n of 75 mL Omnipaque 300 contrast. Sagittal and coronal reformats were obtained. One or more of the following individualized dose reduction techniques were utilized for this examinat ion: 1. Automated exposure control 2. Adjustment of the mA and/or kV according to patient size 3. Use of iterative reconstruction technique. Findings: Lower chest: The lung bases are clear. Heart is normal in size. Liver: Normal Gallbladder/Biliary Tree: Normal. Pancreas: Normal. Spleen: Normal normal. Adrenal Glands: Normal. Kidneys/Ureters/Bladder: Kidneys are normal in size and enhance symmetrically. No hydronephrosis. Ure ters and bladder are unremarkable. Reproductive Organs: Uterus is retroverted. Tubular cystic structure in the right adnexa may be loops of fluid-filled small bowel or hydrosalpinx. The right adnexa had a similar appearance on 07/16/2020 . Stomach, small bowel, and colon: The stomach is normal. There is no small bowel obstruction. The appe ndix is normal. There is a large volume of stool. Colon is otherwise unremarkable. Vasculature: Abdominal aorta is normal in caliber. Lymph Nodes: No lymphadenopathy. Peritoneum and retroperitoneum: Small volume of free fluid in the pelvis. Bones: No acute osseous abnormality. Impression: 1. Tubular fluid-filled structure in the right adnexa could be normal loops of small bowel or could be hydrosalpinx as the right adnexa has a similar appearance on 07/16/2021. Correlate with site of pa in. Pelvic ultrasound could be obtained to further evaluate if clinically indicated. 2. Small volume free fluid in pelvis. Electronically signed by: Lo Ford MD (07/21/2021 2:06 PM) [id number]
--- NOTE | 2021-07-21 16:27 | RAD ---
EXAMINATION: US PELVIS W/TV, 07/21/2021 2:43 PM CLINICAL INDICATION: Pelvic pain, possible hydrosalpinx on CT TECHNIQUE: Grayscale, color and spectral Doppler ultrasound images of the pelvis via transabdominal a nd transvaginal approach. COMPARISON: None. FINDINGS: The uterus measures 10.5 x 5.7 x 4.2 and is retroverted. The endometrial stripe measures 3 mm in thic kness. No myometrial mass. The left ovary measures 3.5 x 2.4 x 2.5 cm. There is normal left ovarian blood flow. There is a 5.8 x 2.4 cm elongated tubular cystic structure in the right adnexa immediately adjacent t o or arising from the right ovary. This is inseparable from the ovary, making measurements difficult. The ovary excluding the tubular structure measures about 2.7 x 2.1 cm. There is normal blood flow se en in the ovary and blood flow along the james and a nodular septation of the tubular structure. Smal l amount of simple free fluid in the pelvis. IMPRESSION: 5.8 x 2.4 cm elongated tubular cystic structure in the right adnexa immediately adjacent to or arising from the right ovary. This is favored to be hydrosalpinx although an ovarian or paraova morelia cyst with a solid nodular component is not excluded. Recommend follow-up ultrasound in 6-8 weeks to reevaluate. Electronically signed by: Lo Ford MD (07/21/2021 4:25 PM) [id number]
[2021-07-21] MEDS ORDERED: HYDR-2761 PO (16:43)
[2021-07-21] MEDS ORDERED: ONDA4TAB7 PO (16:45)
[2021-07-21 16:52] VITALS: BP 115/60
== END 2021-07-21 16:50 | disposition home or self-care (01) ==
LOC: ER 11:55
DX: R10.84 Generalized abdominal pain (principal); N70.11 Chronic salpingitis
CPT/HCPCS: 36415; 74177; 76830; 76856; 80053; 81001; 81025; 83690; 85025; 87077; 87086; 87186; 96361; 96374; 96375; 99285; J1885; J2405; J3010; J7030; Q9967